=== PATIENT | female | born 1990 | race Caucasian/White ===

== ENCOUNTER 2018-03-12 08:43 | Emergency (ER) | payer BC ==
[2018-03-12 09:07] VITALS: BP 114/75
--- NOTE | 2018-03-12 09:50 | EDPHY ---
H & P Time Seen by Provider: 03/12/18 08:52 HPI/ROS: CHIEF COMPLAINT: Rash, tick bite HISTORY OF PRESENT ILLNESS: Patient states she was traveling in [place] between February 25 and the . She was climbing at the [place] area and states she got multiple bites from mosquitos, fleas, gnats. She never saw any ticks but knows they were around. On the 10 of March she noticed a red lesion on her left forearm that had a "target" appearance. She has several pictures of this. It is somewhat painful and also intermittently itchy. She has a few other bites on her lower extremities but nothing that looks like this. She denies fevers, joint pains. She has had a runny nose but thinks that is from allergies. She has taken no medications to treat this. REVIEW OF SYSTEMS: Constitutional: No fever, no chills. Eyes: No discharge. ENT: No sore throat. Cardiovascular: No chest pain, no palpitations. Respiratory: No cough, no shortness of breath. Gastrointestinal: No abdominal pain, no vomiting. Genitourinary: No dysuria. Musculoskeletal: No back pain. Skin: Per HPI Neurological: No headache. General Appearance: Alert, no distress. Eyes: Pupils equal and round no pallor or injection. ENT, Mouth: Mucous membranes moist. Respiratory: There are no retractions, lungs are clear to auscultation. Cardiovascular: Regular rate and rhythm. Gastrointestinal: Abdomen is soft and nontender, no masses, bowel sounds normal. Neurological: Cranial nerves intact, no focal neurologic deficits. Skin: Warm and dry, no rashes. Multiple discrete lesions consistent with insect bite. On the left arm is a region about 3 cm in diameter that is raised , erythematous, small central black lesion. No fluctuance, blisters, abscess. Photos of wound do show central clearing and target lesion. Musculoskeletal: Neck is supple nontender. Extremities are symmetrical, full range of motion, no edema. Psychiatric: Patient is oriented X 3, there is no agitation. Medical/surgical history: Attention deficit hyperactivity disorder, orthopedic surgeries. Social history: No tobacco, no ETOH. Smoking Status: Never smoked Constitutional: Initial Vital Signs Temperature (C) 37 C 03/12/18 08:59 Heart Rate 80 03/12/18 08:59 Respiratory Rate 16 03/12/18 08:59 Blood Pressure 114/75 03/12/18 08:59 O2 Sat (%) 96 03/12/18 08:59 O2 Delivery Mode Room Air Allergies/Adverse Reactions: chlorhexidine Allergy (Verified 03/12/18 09:07) Home Medications: Medication Instructions Recorded Doxycycline Monohydrate [Monodox] 100 mg PO BID 21 Days #42 capsule 03/12/18 VYVANSE 03/12/18 Medical Decision Making ED Course/Re-evaluation: Differential diagnosis includes but is not limited to erythema migrans, cellulitis, abscess, other insect bite. After evaluation the wound and location of her recent travel suspicious for erythema migrans and will go ahead and treat with doxycycline for possible Lyme exposure. No signs of systemic illness at this time. No fevers, lymphadenopathy, arthritis. Will treat for full 21 days but encouraged her to follow up with infectious disease. Return precautions discussed. Stable for discharge. Departure - Departure Clinical Impression: Erythema migrans (Lyme disease) Condition: Good Instructions: Lyme Disease (ED) Additional Instructions: Follow-up with Infectious Disease as discussed. If you get new or worsening symptoms you should return to the emergency department or see a primary care physician. Referrals: Marybel Dai MD [Medical Doctor] - As per Instructions Prescriptions: Doxycycline Monohydrate [Monodox] 100 mg PO BID 21 Days #42 capsule
== END 2018-03-12 10:00 | disposition home or self-care (01) ==
LOC: CED 08:43
DX: A26.0 Cutaneous erysipeloid (principal)